=== PATIENT | male | born 1940 | race Caucasian/White ===

== ENCOUNTER 2017-03-23 13:16 | Emergency (ER) | payer MEDICARE, OTHER ==
[~2017-03-23] VITALS: Ht 162.6 cm; Wt 59.0 kg
--- NOTE | 2017-03-23 13:35 | NUR ---
bb family: right eye redness s/p scratching it this am. Patient is a/ox 4. breathing even and unlabored. no sob. right eye is red with drainage. vitals stable. safety and comfort measures in place. awaiting md orders.
--- NOTE | 2017-03-23 14:23 | NUR ---
Patient discharged to home in stable condition. Written and verbal after care instructions given. Patient verbalizes understanding of instruction.
[2017-03-23 14:24] VITALS: BP 132/68
== END 2017-03-23 14:20 | disposition home or self-care (01) ==
LOC: ER 13:18
DX: S05.31XA Ocular laceration without prolapse or loss of intraocular tissue, right eye, initial encounter (principal); H11.31 Conjunctival hemorrhage, right eye; I10 Essential (primary) hypertension; E78.00 Pure hypercholesterolemia, unspecified; Z98.890 Other specified postprocedural states; W50.4XXA Accidental scratch by another person, initial encounter; Y93.89 Activity, other specified; Y92.89 Other specified places as the place of occurrence of the external cause; Y99.8 Other external cause status
CPT/HCPCS: A4606; Z7610